=== PATIENT | male | born 1950 | race Caucasian/White ===

== ENCOUNTER 2018-04-13 13:23 | Observation (INO) ==
[2018-04-13] MEDS ORDERED: Bisacodyl 10 MG Supp RECTAL PRN (17:29)
[2018-04-13] MEDS ORDERED: Acetaminophen 325 MG Tablet PO PRN (17:29)
--- NOTE | 2018-04-13 20:35 | MR ---
EXAM DATE: 04/13/2018 8:26 PM EST AGE/SEX: 68 years / Male INDICATIONS: . Cellulitis. Cat bite. Area of pain and swelling marked. CLINICAL DATA: This is the patient's initial encounter. Patient reports that signs and symptoms have been present for 3 days and indicates a pain score of 5/10. MEDICAL/SURGICAL HISTORY: Hypertension. Seizures. Appendectomy. Discectomy, lumbar. COMPARISON: [facility], WRIST COMPLETE RIGHT MIN 3V, 04/13/2018. . TECHNIQUE: Multiplanar, multisequence MRI examination was performed without contrast and after the i ntravenous administration of 7 ml Gadavist (gadobutrol) contrast as a single exam dose. FINDINGS: Subcutaneous edema is seen ulnar aspect of the carpus and distal forearm. No drainable abscess is dem onstrated. There is small fluid and associated tendon sheath enhancement of extensor carpi ulnaris. No fractures or subluxations are demonstrated. No joint centered acute inflammatory changes. No evide nce of osteomyelitis. CONCLUSION: 1. Broad area of cellulitis involving the ulnar aspect of the carpus and distal forearm without a dr ainable abscess. 2. Mild tenosynovitis of extensor carpi ulnaris. This is nonspecific, could be reactive although ear ly or mild infectious tenosynovitis cannot excludable. 3. No evidence of osteomyelitis or septic arthropathy. Electronically signed by: Alexandru Reynoso MD 04/13/2018 8:33 PM EST
--- NOTE | 2018-04-13 21:02 | P.HPIM ---
History of Present Illness [facility] . Primary Care Physician: UNKNOWN Chief Complaint: Cat bite to right forearm History of Present Illness: Mr. Smith is a pleasant 68-year-old male with a history of seizures, chronic back pain, and hypertension who presented to the emergency room in [place] complaining of increasing pain and swelling to right forearm following a cat bite 04/11/18. The patient states that he has an outdoor cat that he wanted to take to the vet to get spayed. He cornered the cat and when he went to reach for her, she bit his right forearm on the dorsal surface near his wrist. Multiple x-ray images were obtained of the wrist, hand, and forearm with no acute findings. The patient was transferred to [facility] for hospitalist management and hand surgery consultation because of the amount of swelling, tenderness, and purulent discharge from the wound. The patient is seen in the CDU. He denies any paresthesias and is able to move his hand well. An MRI was ordered to be completed upon arrival and this showed broad area of cellulitis involving the ulnar aspect of the carpus and distal forearm without a drainable abscess. Mild tenosynovitis of the extensor carpi ulnaris was also noted (though it is noted that it may have been reactive versus mild infection). There was no evidence of osteomyelitis or septic arthropathy. The patient reports pain 4 out of 10 that is aching. He states the pain and swelling had gotten progressively worse since Monday resulting in his his presentation to the emergency room on Monday. Review of Systems All other systems reviewed negative except as stated in HPI PMFSH - History History Provided By: Patient - Medical History Medical History: Medical History (Last Reviewed 04/13/18 @ 21:02 by JOLYNN Brown) Chronic back pain HTN (hypertension) Seizure - Surgical History Surgical History: Surgical History (Last Reviewed 04/13/18 @ 21:02 by JOLYNN Brown) History of back surgery Hx of appendectomy - Family History Family History: Family History (Last Updated 04/13/18 @ 21:03 by JOLYNN Brown) Mother Family history of diabetes mellitus - Social History I have reviewed the patient's Social History: Yes - Tobacco History Second Hand Smoke Exposure: No Tobacco Use In Past 30 Days: Yes Smoking Status: Current every day smoker Tobacco Type: Cigarettes - Alcohol History How Often Do You Have a Drink Containing Alcohol: Never - Substance Use History Substance History: No History of Abuse Medications and Allergies Active Medications: Active Medications Acetaminophen (Tylenol) 650 mg PO Q4H PRN PRN Reason: Headache, fever, pain 1-4 Hydrocodone Bitart/Acetaminophen (Wynot 5/325) 1 tab PO Q4H PRN PRN Reason: pain not relieved by Toradol Al Hydroxide/Mg Hydroxide (Milk Of Magnesia Liq) 30 ml PO Q12H PRN PRN Reason: Mild Constipation Bisacodyl (Dulcolax Supp) 10 mg RECTAL DAILY PRN PRN Reason: SEVERE CONSITIPATION Ciprofloxacin HCl (Cipro) 750 mg PO Q12HR NEHEMIAS Last Admin: 04/13/18 20:38 Dose: 750 mg Ketorolac Tromethamine (Toradol Inj) 15 mg IV.PUSH Q6H PRN PRN Reason: pain Lactulose (Lactulose Liq) 30 ml PO DAILY PRN PRN Reason: SEVERE CONSITIPATION Metronidazole (Flagyl) 500 mg PO Q8HR NEHEMIAS Ondansetron HCl (Zofran Inj) 4 mg IV.PUSH Q6H PRN PRN Reason: NAUSEA OR VOMITING Sennosides (Senokot) 17.2 mg PO Q12H PRN PRN Reason: Moderate Constipation Temazepam (Restoril) 7.5 mg PO HS PRN PRN Reason: INSOMNIA Allergies Allergy/AdvReac Type Severity Reaction Status Date / Time Penicillins Allergy Rash Verified 04/13/18 13:54 phenobarbital Allergy Hives Verified 04/13/18 13:54 Home Medications Medication Instructions Recorded Confirmed Type atenolol 25 mg PO DAILY 04/13/18 04/13/18 History lamotrigine [Lamictal] 100 mg PO BID 04/13/18 04/13/18 History methocarbamol 500 mg PO QID 04/13/18 04/13/18 History valproic acid 750 mg PO BID 04/13/18 04/13/18 History Exam Vital signs: Vital Signs 04/13/18 20:00 Temperature 98.7 F Pulse Rate 68 Respiratory Rate 18 Blood Pressure 106/58 L Pulse Oximetry 97 Narrative: GENERAL: This is a well-nourished, well-developed patient, in no apparent distress. SKIN: Right forearm with puncture wound noted on dorsal aspect of forearm near wrist with focal erythema and edema with tenderness. Sensation is intact. HEAD: Atraumatic. Normocephalic. EYES: No scleral icterus. No injection or drainage. ENT: Nose without bleeding, purulent drainage. NECK: Trachea midline. No JVD. CARDIOVASCULAR: Regular rate and rhythm without murmurs, gallops, or rubs. RESPIRATORY: Clear to auscultation. Breath sounds equal bilaterally. No wheezes , rales, or rhonchi. GASTROINTESTINAL: Abdomen soft, non-tender, nondistended. No guarding. MUSCULOSKELETAL: Extremities without clubbing, cyanosis. No calf tenderness. NEUROLOGICAL: Awake and alert. Motor and sensory grossly within normal limits. Normal speech. . Results - Imaging Impressions Hand MRI 04/13/18 00:00 CONCLUSION: 1. Broad area of cellulitis involving the ulnar aspect of the carpus and distal forearm without a drainable abscess. 2. Mild tenosynovitis of extensor carpi ulnaris. This is nonspecific, could be reactive although early or mild infectious tenosynovitis cannot excludable. 3. No evidence of osteomyelitis or septic arthropathy. Caprini VTE Risk Assessment Caprini VTE Risk Assessment: Moderate/High Risk (score >= 2) Caprini Risk Assessment Model: Point Value = 1 Point Value = 2 Point Value = 3 Point Value = 5 Age 41-60 Minor surgery BMI > 25 kg/m2 Swollen legs Varicose veins or History of unexplained or recurrent spontaneous Oral contraceptives or hormone replacement Sepsis (< 1 month) Serious lung disease, including pneumonia (< 1 month) Abnormal pulmonary function Acute myocardial infarction Congestive heart failure (< 1 month) History of inflammatory bowel disease Medical patient at bed rest Age 61-74 Arthroscopic surgery Major open surgery (> 45 min) Laparoscopic surgery (> 45 min) Malignancy Confined to bed (> 72 hours) Immobilizing plaster cast Central venous access Age >= 75 History of VTE Family history of VTE Factor V Leiden Prothrombin [id number] Lupus anticoagulant Anticardiolipin antibodies Elevated serum homocysteine Heparin-induced thrombocytopenia Other congenital or acquired thrombophilia Stroke (< 1 month) Elective arthroplasty Hip, pelvis, or leg fracture Acute spinal cord injury (< 1 month) Prophylaxis Regimen: Total Risk Factor Score Risk Level Prophylaxis Regimen 0-1 Low Early ambulation 2 Moderate Order ONE of the following: *Sequential Compression Device (SCD) *Heparin 5000 units SQ BID 3-4 Higher Order ONE of the following medications: *Heparin 5000 units SQ TID *Enoxaparin/Lovenox 40 mg SQ daily (WT < 150 kg, CrCl > 30 mL/min) *Enoxaparin/Lovenox 30 mg SQ daily (WT < 150 kg, CrCl > 10-29 mL/min) *Enoxaparin/Lovenox 30 mg SQ BID (WT < 150 kg, CrCl > 30 mL/min) AND/OR *Sequential Compression Device (SCD) 5 or more Highest Order ONE of the following medications: *Heparin 5000 units SQ TID (Preferred with Epidurals) *Enoxaparin/Lovenox 40 mg SQ daily (WT < 150 kg, CrCl > 30 mL/min) *Enoxaparin/Lovenox 30 mg SQ daily (WT < 150 kg, CrCl > 10-29 mL/min) *Enoxaparin/Lovenox 30 mg SQ BID (WT < 150 kg, CrCl > 30 mL/min) AND *Sequential Compression Device (SCD) Assessment and Plan - Plan Mr. Smith is a pleasant 68-year-old male with a history of seizures, chronic back pain, and hypertension who presented to the emergency room in [place] complaining of increasing pain and swelling to right forearm following a cat bite 04/11/18. The patient states that he has an outdoor cat that he wanted to take to the vet to get spayed. He cornered the cat and when he went to reach for her, she bit his right forearm on the dorsal surface near his wrist. The patient was transferred to [facility] for hospitalist management and hand surgery consultation. Right forearm cellulitis secondary to cat bite with small abscess -Cipro 750 p.o. twice daily and Flagyl 500 mg p.o. every 8 hours -Hand surgery consulted and saw the patient while he was in MRI -please see consultation note dated 04/13/2018 - appreciate recommendations -Surgical management will be considered if the patient does not improve on IV antibiotics -OT/PT consultation for hand range of motion and edema control -Wynot 5/325 every 4 hours as needed for pain not relieved with Toradol -PRN Toradol 15 mg every 6 hours for hans History of seizure disorder -Continue home Depakote and Lamictal Chronic back pain -Continue home methocarbamol Hypertension -Continue home Tenormin -Monitor blood pressure trends and adjust treatments as indicated Hypokalemia -Potassium replaced in the ED -Recheck in a.m. and replace if indicated DVT prophylaxis -SCDs -Chemoprophylaxis when okay with hand surgery . Discussed Condition With: Dr. Tran, patient, and RN . H&P: Quality - VTE Deep Vein Thrombosis/Pulmonary Embolism Present on Admission: No
[2018-04-13] MEDS: metroNIDAZOLE 500 MG Tablet PO SCH (21:20)
--- NOTE | 2018-04-13 21:25 | MB ---
cc: ,Watson Bobo DO DATE: 04/13/2018 REQUESTING PHYSICIAN: Watson Hastings DO CONSULTING PHYSICIAN: Leo Wade MD CHIEF COMPLAINT: Right hand cat bite with cellulitis. HISTORY OF PRESENT ILLNESS: Mr. Smith is a 68-year-old, right-hand dominant gentleman who presents by way of hospital transfer from [facility]. He notes on Monday he was petting a stray cat which he is familiar with. He sustained a bite to the dorsum of the forearm as well as over the dorsum of the hand. He notes that over the last 2 days, the region surrounding the bite has become more painful to touch. As such, he presented to the ER for evaluation. On presentation at bedside, he rates his pain a 5/10 in severity. He denies paresthesias of the upper extremity. He denies painful range of motion of the wrist or hand. PAST MEDICAL HISTORY: Significant for a seizure disorder. PAST SURGICAL HISTORY: Significant for back surgery, left thumb surgery. MEDICATIONS: As per hospital chart. ALLERGIES: PENICILLIN AND PHENOBARBITAL. FAMILY HISTORY: Noncontributory. SOCIAL HISTORY: He denies tobacco use. REVIEW OF SYSTEMS: GENERAL: No fever or chills. ABDOMEN: No nausea or vomiting. MUSCULOSKELETAL: Right forearm pain. NEUROLOGIC: No numbness or tingling. PSYCHIATRIC: No anxiety or depression. SKIN: Erythema, lacerations from cat bite. PHYSICAL EXAMINATION: GENERAL: He is alert and oriented x 3 with a normal mood and affect. MUSCULOSKELETAL: Focused evaluation of the right upper extremity demonstrates a dorsal puncture wound along the dorsal ulnar aspect of the forearm proximal to the level of the DRUJ. There is no underlying palpable fluctuance. There is tenderness around this region. There is focal erythema. There is painless range of motion, both passive and active, of the wrist and the hand. Forearm supination is limited secondary to pain. There is full elbow range of motion. Mild hand edema. Sensation is intact to the median, radial, ulnar nerve distributions. NEUROLOGIC: As per above. ABDOMEN: Soft, nondistended. PSYCHIATRIC: Normal mood and affect. SKIN: Cat bite lesion as noted above. CARDIOVASCULAR: Regular rate and rhythm. LUNGS: Nonlabored breathing. IMAGING REVIEW: MRI of the right wrist and hand was performed and was available for my independent evaluation. This demonstrates dorsal subcutaneous edema with localized proximal to the level of the distal radioulnar joint along the dorsum of the forearm. There is no evidence of a joint effusion at the wrist or DRUJ level. NO abscess. ASSESSMENT: A 68-year-old gentleman status post cat bite on 04/11/2018 to the dorsal forearm, who presents with cellulitis. PLAN: 1. I had a thorough discussion with Mr. Smith regarding our recommendations for continuation of medical management. On exam, he has no evidence of septic joint. He has a focal area of tenderness overlying the dorsal ulnar forearm consistent which is at the location of the cat bite. This is also suggestive of a region of cellulitis. I discussed our recommendations for IV antibiotic treatment alone given the small size of the abscess. We discussed that we will continue to follow him. 2. Weightbearing as tolerated to the right upper extremity. 3. OT/PT consultation for hand range of motion, edema control. 4. Hand surgery to continue to follow the patient's progress. Leo Wade MD, CM/olivia , 08:30 PM , 08:40 PM ANDRÉS
[2018-04-13] MEDS ORDERED: Gadobutrol PF 7.5 MMOL/7.5 ML Vial (for RAD) IV.SIG ONE (22:51)
[2018-04-14] MEDS: lamoTRIgine 100 MG Tablet PO SCH ×2 (02:56→08:42)
[2018-04-14] MEDS: metroNIDAZOLE 500 MG Tablet PO SCH ×2 (06:16→14:37)
[2018-04-14] MEDS: Ketorolac Inj 30 MG/ML (IVP) Vial IV.PUSH PRN ×2 (08:40→14:41)
[2018-04-14] MEDS: Methocarbamol 500 MG Tablet PO SCH ×2 (08:42→12:23)
[2018-04-14] MEDS ORDERED: Atenolol 25 MG Tablet PO SCH (09:00)
--- NOTE | 2018-04-14 09:04 | P.PNOP ---
Subjective Interval history: No acute overnight events. Pain well controlled. Denies current complaints. Physical Exam Vital signs: Vital Signs 04/13/18 20:00 04/14/18 08:00 Temperature 98.7 F 97.2 F L Pulse Rate 67 62 Respiratory Rate 18 20 Blood Pressure 119/59 L 119/68 Pulse Oximetry 95 94 L Intake & Output 04/13/18 04/14/18 04/14/18 18:59 06:59 18:59 Output Total 225 / 225 Balance -225 / -225 Output: Urine 225 / 225 Other: Date of Last Bowel Movement 04/14/18 - Routine Extremities Exam Comments: Focused evaluation of the right upper extremity demonstrates dorsal forearm edema. Bite localized to the dorsal ulnar aspect of the forearm. Residual tenderness to palpation about this region. Focal cellulitis. No palpable fluctuance. Full, painless passive range of motion of the wrist and hand. Sensation is intact throughout the hand. Hand is warm, well-perfused. No lymphadenopathy, epitrochlear or axillary. Results - Imaging Impressions Hand MRI 04/13/18 00:00 CONCLUSION: 1. Broad area of cellulitis involving the ulnar aspect of the carpus and distal forearm without a drainable abscess. 2. Mild tenosynovitis of extensor carpi ulnaris. This is nonspecific, could be reactive although early or mild infectious tenosynovitis cannot excludable. 3. No evidence of osteomyelitis or septic arthropathy. Assessment and Plan - Assessment and Plan Right dorsal forearm/wrist cellulitis secondary to cat bite Appreciate medicine primary management Continue IV antibiotic therapy, with transition to oral therapy No plans for surgical intervention. No abscess appreciated on MRI. Hand surgery to follow patient's care in the periphery. Please reconsult us should his symptoms acutely worsen. Otherwise he may be discharged on an oral antibiotic regimen. He may follow-up locally with his primary care physician for reassessment. Otherwise he may follow-up in our clinic in 7-10 days for a wound check if he is unable to secure local, primary care. [phone].
--- NOTE | 2018-04-14 14:11 | P.PNIM ---
Subjective Interval history: feeling much beeter. hand swelling improved. no fevers or chills. Physical Exam Vital signs: Last Vital Signs Temp 97.9 F 04/14/18 12:00 Pulse 55 L 04/14/18 12:00 Resp 12 04/14/18 12:00 BP 115/60 04/14/18 12:00 Pulse Ox 93 L 04/14/18 12:00 Intake & Output 04/12/18 04/13/18 04/14/18 04/15/18 06:59 06:59 06:59 06:59 Output Total 225 / 225 Balance -225 / -225 Narrative: focused rt forearm/hand exam-mild swelling and erythema distal anterolateral aspect of forearm. bite vazquez noted with scab. no discharge. mild tenderness. Results Imaging Imaging: Impressions Hand MRI 04/13/18 00:00 CONCLUSION: 1. Broad area of cellulitis involving the ulnar aspect of the carpus and distal forearm without a drainable abscess. 2. Mild tenosynovitis of extensor carpi ulnaris. This is nonspecific, could be reactive although early or mild infectious tenosynovitis cannot excludable. 3. No evidence of osteomyelitis or septic arthropathy. Assessment and Plan Plan Patient presented with hand cellulitis secondary to cat bite. clinically symptomatically improved. appreciate orthopedic, pt/ot evaluation. patient clinically stable for discharge on PO antibiotics. Progress Note: Quality VTE Deep Vein Thrombosis/Pulmonary Embolism Present on Admission: No
[2018-04-14 15:53] VITALS: BP 121/57; PULSE 64; RESP 16; TEMP 98.1; O2SAT 92
== END 2018-04-14 16:38 | disposition home or self-care (01) ==
LOC: NEPFCDU 13:23 → NEDDLT 13:23
PROVIDERS: ADMIT Hospitalist; ATTEND Hospitalist